=== PATIENT | female | born 1960 | race Hispanic/Latino ===

== ENCOUNTER → 2021-04-11 | Outpatient (CLI) | payer SELFPAY | LOC: US 11:02 | PROVIDERS: ATTEND Internal Medicine | DX: R10.11 Right upper quadrant pain (principal) | CPT/HCPCS: 76700 ==

== ENCOUNTER → 2021-04-18 | Outpatient (CLI) | payer OTHER | LOC: MAMMO 10:20 | PROVIDERS: ATTEND Internal Medicine | DX: Z12.31 Encounter for screening mammogram for malignant neoplasm of breast (principal) | CPT/HCPCS: 77067 ==

== ENCOUNTER → 2021-05-19 | Outpatient (CLI) | payer SELFPAY | LOC: CT 10:54 | PROVIDERS: ATTEND Internal Medicine | DX: K74.00 Hepatic fibrosis, unspecified (principal) | CPT/HCPCS: 74150 ==